=== PATIENT | female | born 1995 | race Caucasian/White ===

== ENCOUNTER 2017-07-31 00:54 | Outpatient (CLI) | payer OTHER ==
[~2017-07-31] VITALS: Ht 160 cm; Wt 73.0 kg
[~2017-07-31 00:54] MED LIST: FRRS300 PO; MTR600X PO; PREN1TAB29 PO
[2017-07-31 01:48] VITALS: Ht 160 cm; Wt 73.0 kg
== END 2017-07-31 03:09 | disposition home or self-care (01) ==
LOC: C.LD 00:54 → C.OPB 00:54
PROVIDERS: ATTEND Obstetrics & Gynecology
DX: O62.9 Abnormality of forces of labor, unspecified (principal); Z3A.38 38 weeks gestation of pregnancy

== ENCOUNTER 2017-08-14 07:23 | Inpatient (IN) | payer OTHER ==
[~2017-08-14] VITALS: Ht 160 cm; Wt 85.5 kg
[~2017-08-14 07:23] MED LIST changes: -FRRS300 PO; -MTR600X PO
[2017-08-14 07:47] VITALS: Ht 160 cm; Wt 85.5 kg
[2017-08-14] MEDS ORDERED: LACTATED RINGER'S 1000ML 1,000 ML IV SCH (07:52)
[2017-08-14] MEDS ORDERED: LACTATED RINGER'S 1000ML 1,000 ML IV PRN (07:52)
[2017-08-14] MEDS ORDERED: LACTATED RINGER'S 1000ML 500 ML IV PRN (07:52)
[2017-08-14] MEDS ORDERED: CALCIUM CARBONATE 500 MG CHEWABLE PO PRN (08:00)
[2017-08-14] MEDS ORDERED: OXYTOCIN 30 UNITS/500ML NSS IV PRN ×2 (08:00→16:00)
[2017-08-14 08:16] LABS: HEMATOCRIT 30.7 % (37-47); MEAN CELL VOLUME 86.7 fL (80-100); MEAN CORPUSCULAR HEMOGLOBIN 28.2 pg (25-34); MEAN CORPUSCULAR HGB CONC 32.6 g/dl (32-36); MEAN PLATELET VOLUME 8.9 fL (7.4-10.4); PLATELET COUNT 243 K/uL (130-400); RED CELL DISTRIBUTION WIDTH CV 14.6 % (11.5-14.5); RED CELL DISTRIBUTION WIDTH SD 46.2 fL (36.4-46.3); WHITE BLOOD COUNT 9.36 K/uL (4.8-10.8)
[2017-08-14] MEDS: BUTORPHANOL TARTRATE 1 MG/ML VIAL IV PRN ×2 (12:44→14:44)
[2017-08-14] MEDS ORDERED: EpHEDrine SULFATE INJ 50 MG/ML AMP ONE (15:27)
[2017-08-14] MEDS ORDERED: BUPIVACAINE 0.25% 30 ML VIAL ONE (15:27)
[2017-08-14] MEDS ORDERED: FENTANYL CITRATE INJ 50 MCG/1 ML 2 ML VIAL ONE (15:28)
[2017-08-14] MEDS ORDERED: FENTANYL 2MCG/ML ROPIV 1.25MG/ML 100ML BAG ONE (15:28)
[2017-08-14] MEDS ORDERED: SUPERCREAM 0.870 % 15GM JAR EXT PRN (16:00)
[2017-08-14] MEDS ORDERED: DIPHTHERIA/TETANUS/PERTUSSIS 0.5 ML SYR/VIAL IM. ONE (16:00)
[2017-08-14] MEDS ORDERED: OXYCODONE/ACETAMINOPHEN 5-325 TAB PO PRN (16:00)
[2017-08-14] MEDS ORDERED: ACETAMINOPHEN 325 MG TAB PO PRN (16:00)
[2017-08-14] MEDS ORDERED: LANOLIN OINT EXT PRN (16:00)
[2017-08-14] MEDS ORDERED: HYDROCORTISONE ACETATE 25 MG SUPP PR PRN (16:00)
[2017-08-14] MEDS ORDERED: BENZOCAINE 20% AER SPR 82.5 GM CAN EXT PRN (16:00)
[2017-08-14] MEDS: IBUPROFEN 600 MG TAB PO PRN (16:07)
[2017-08-14 18:10] VITALS: BP 122/78; PULSE 109; TEMP 36.7
--- NOTE | 2017-08-14 19:28 | DELIVERY SUMMARY ---
DATE OF OPERATION: 08/14/2017 DATE OF DELIVERY: 08/14/2017 TIME OF DELIVERY: 1543. DELIVERY OF PLACENTA: 1544. DELIVERY NOTE: The patient is a 22-year-old 2 Para 1 at 40 weeks and 6 days gestation who was admitted to Labor and Delivery on the morning of 08/14/2017 for a scheduled induction of labor secondary to being post-dates. On admission she was found to be 3 cm, 60% effaced and -3 station. Oxytocin per protocol was began for labor induction. She had spontaneous rupture of membranes at 1225 a.m. with clear amniotic fluid noted. She received Stadol for pain control. She chose not to have an epidural. She reached complete dilation at 1538 with urge to push. The patient pushed to delivery at 1543. She delivered a viable female in the right occiput anterior position to an intact perineum. The anterior shoulder was delivered with Marta and suprapubic pressure. Once the anterior shoulder the baby was delivered and placed on the patient's abdomen. Cord was clamped x2 and cut. Apgars were 9 at 1 minute and 9 at 5 minutes; please see nursing notes for further baby assessment. Cord blood was obtained, intact placenta with 3-vessel cord was delivered at 1544. Oxytocin infusion was then began. The lower uterine segment and vagina is cleared of any blood clots and debris. Exploration of the perineum noted a first degree vaginal laceration which was repaired with 2-0 Vicryl suture in a continuous running fashion. Excellent hemostasis was noted and no other lacerations were seen. Estimated blood loss was 300 cc. All sponge, instrument and needle counts were found to be correct x2. Both patient and baby tolerated the delivery well and were in recovery with stable vital signs. I attest to the content of the Intraoperative Record and any orders documented therein. Any exceptions are noted below. MTDD
[2017-08-14 19:30] VITALS: BP 97/68; PULSE 89; TEMP 37.1
[2017-08-14] MEDS: DOCUSATE SODIUM 100 MG CAP PO SCH (19:55)
[2017-08-14 23:30] VITALS: BP 111/68; PULSE 89; TEMP 36.8
[2017-08-15] MEDS: IBUPROFEN 600 MG TAB PO PRN ×4 (00:25→15:30)
[2017-08-15 05:00] VITALS: BP 107/67; PULSE 92; TEMP 36.8
[2017-08-15 06:18] LABS: HEMATOCRIT 24.6 % (37-47)
[2017-08-15 08:30] VITALS: BP 112/75; PULSE 78; TEMP 36.7
[2017-08-15] MEDS: DOCUSATE SODIUM 100 MG CAP PO SCH ×2 (08:46→19:47)
[2017-08-15] MEDS: PRENATAL VITAMIN TAB PO SCH (08:46)
[2017-08-15] MEDS: FERROUS SULFATE 325 MG TAB PO SCH (08:46)
--- NOTE | 2017-08-15 09:15 | OB/GYN Progress Note ---
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 Subjective conversation w/ patient, physical exam Ambulation: ambulating normally Passing Gas: Yes Diet Tolerance: Regular Diet Lochia: Moderate Feeding Type: Breast Feeding Objective Vital Signs Date Time Temp Pulse Resp B/P (MAP) Pulse Ox O2 Delivery O2 Flow Rate FiO2 08/15/17 05:00 36.8 92 20 107/67 (80) Room Air 08/14/17 23:30 36.8 89 20 111/68 (82) Room Air 08/14/17 23:30 Room Air 08/14/17 19:30 37.1 89 20 97/68 (78) Room Air 08/14/17 18:10 Room Air 08/14/17 18:10 36.7 109 20 122/78 (93) Room Air Physical Exam General Appearance: WELL-APPEARING, NO APPARENT DISTRESS Abdomen: non tender, soft Fundus: Firm Extremities: non-tender, normal inspection, no pedal edema Laboratory Results Last 24 Hours Test 08/15/17 05:58 Hemoglobin 8.0 g/dL Hematocrit 24.6 % Assessment and Plan Post- Day Number: 1 Continue Routine Care: tent d/c in AM
[2017-08-15 11:55] VITALS: BP 115/80; PULSE 97; TEMP 36.7
[2017-08-15 15:15] VITALS: BP 117/71; PULSE 90; TEMP 37.1
[2017-08-15] MEDS ORDERED: BISACODYL 5 MG TABEC PO SCH (20:00)
[2017-08-16 00:50] VITALS: BP 115/69; PULSE 74; TEMP 36.6
[2017-08-16 06:39] LABS: HEMATOCRIT 26.2 % (37-47); HEMOGLOBIN 8.2 g/dL (12.0-16.0); MEAN CELL VOLUME 87.6 fL (80-100); MEAN CORPUSCULAR HEMOGLOBIN 27.4 pg (25-34); MEAN CORPUSCULAR HGB CONC 31.3 g/dl (32-36); MEAN PLATELET VOLUME 8.3 fL (7.4-10.4); PLATELET COUNT 215 K/uL (130-400); RED CELL DISTRIBUTION WIDTH CV 14.9 % (11.5-14.5); RED CELL DISTRIBUTION WIDTH SD 47.3 fL (36.4-46.3); WHITE BLOOD COUNT 9.84 K/uL (4.8-10.8)
[2017-08-16] MEDS ORDERED: BISACODYL 10 MG SUPP PR PRN (07:00)
[2017-08-16 08:00] VITALS: BP 106/69; PULSE 96; TEMP 36.7; O2SAT 100
--- NOTE | 2017-08-16 08:24 | OB/GYN Progress Note ---
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 Patient is seen and examined. She feels well, no complaints. Ambulating without dizziness Voiding without difficulty Tolerating regular diet with out N&V Bleeding is minimal No fever/ chills/ CP/ SOB/ N&V/ Leg pain Breast feeding without problems Date Time Temp Pulse Resp B/P (MAP) Pulse Ox O2 Delivery O2 Flow Rate FiO2 08/16/17 00:50 36.6 74 18 115/69 (84) Room Air 08/16/17 00:50 Room Air 08/15/17 15:15 37.1 90 20 117/71 (86) 08/15/17 11:55 36.7 97 22 115/80 (92) 08/15/17 08:30 36.7 78 20 112/75 (87) Last 24 Hours Test 08/16/17 06:15 White Blood Count 9.84 K/uL Red Blood Count 2.99 M/uL Hemoglobin 8.2 g/dL Hematocrit 26.2 % Mean Corpuscular Volume 87.6 fL Mean Corpuscular Hemoglobin 27.4 pg Mean Corpuscular Hemoglobin Concent 31.3 g/dl RDW Standard Deviation 47.3 fL RDW Coefficient of Variation 14.9 % Platelet Count 215 K/uL Mean Platelet Volume 8.3 fL PE: General: Alert, orientedx3, NAD Abd: soft, NT, fundus firm, below Umbilicus Perineum intact, Lochia rubra minimal Ext; NT, no edema AP: 22 yo s/p , ppd# 2 VSS Afebrile doing well Continue routine care All questions were answered D/C home , f/u in office
[2017-08-16] MEDS: DOCUSATE SODIUM 100 MG CAP PO SCH (08:25)
[2017-08-16] MEDS: FERROUS SULFATE 325 MG TAB PO SCH (08:25)
[2017-08-16] MEDS: PRENATAL VITAMIN TAB PO SCH (08:25)
[2017-08-16] MEDS ORDERED: FRRS300 PO (08:26)
[2017-08-16] MEDS: IBUPROFEN 600 MG TAB PO PRN (08:26)
[2017-08-16] MEDS ORDERED: MTR600X PO (08:26)
--- NOTE | 2017-08-16 08:27 | Discharge Instructions ---
Discharge Instructions Date of Service August 16, 2017. Admission Reason for Admission: Induction Discharge Discharge Diagnosis / Problem: Discharge Goals Goal(s): Routine recovery after delivery Medications Continue Dispensed Medications: lansinoh, other Activity Recommendations Activity Limitations: as noted below ACTIVITY RECOMMENDATIONS: * Gradual return to full activity over the next 2-3 weeks. * No lifting - nothing heavier than baby over the next 2-3 weeks. * Do not engage in vigorous exercise, sexual activity or sports until cleared by your physician. * Do not drive or operate any motorized equipment until cleared by your physician. * You may shower/bathe daily. BREAST CARE: If you are not breast feeding: * Wear a supportive bra 24 hours a day for one to two weeks. * Avoid stimulating your breasts and nipples as much as possible during the first few weeks after delivery. * When taking a shower, have the warm water hit your back, not breasts. * When your breasts feel full, apply ice packs. Usually three to four times a day helps ease the discomfort. * Take a mild pain medication (Tylenol/Motrin) when you are uncomfortable. If breast feeding: * Use breast milk to lubricate nipples. Lansinoh cream may be used for sore nipples. You do not need to remove cream prior to breast feeding. If using a different brand of cream, check the label for directions regarding removal of cream prior to nursing. * Wear a supportive bra. * If having problems with breasts or breast feeding, call a technical sales consultant or your health care provider. EPISIOTOMY CARE: After delivery, if you have an episiotomy (stitches), the following steps will ease discomfort and aid healing. * For the first 24 hours after delivery, place ice packs next to your episiotomy to help reduce swelling. * After the first 24 hour-period, sitz baths, either portable or in the tub, are suggested. A shower with a shower arm sprayed over the episiotomy may be comforting. * Marimar care should be done after each voiding and bowel movement. Squirt warm water from a plastic bottle over the perineum (region of the body between the anus and urinary opening) and pat dry. * Use Dermoplast to ease discomfort. Shake container. [place] directly over the episiotomy. * Place a Tucks on a clean sanitary pad next to your episiotomy. OVER THE COUNTER MEDICATION: * For discomfort or pain, you may use Acetaminophen (Tylenol), Ibuprofen (Advil ), or Naproxen (Aleve) following the package directions. * For constipation you may use Colace following the package directions. SPECIAL CARE INSTRUCTIONS: When you are discharged from the hospital, it is important for you to follow the instructions listed below: * During the first week at home, you should be able to care for yourself and your baby. In addition, the usual light household activities are encouraged. * Limit your activities to the way you feel. Do not try to clean the house or move furniture. Be sensible. * If you actively engage in sports and have done so up until the time of your delivery, you may resume these activities as soon as you feel able. This may take up to one month or even longer. Use good judgment. * Continue to take your vitamins for at least six weeks after the of your baby. * Your diet need not be limited unless you were on a special diet before your delivery. Breast-feeding mothers need around 2500 calories per day and at least 64-80 ounces of fluid per day (8 to 10 glasses). * You should eat foods from the four major food groups. Crash diets or fad diets are to be avoided. Eating lean meats, fresh fruits and vegetables, low-fat dairy products, high fiber foods and a regular exercise program, will help you get back to your pre- weight without putting your health at risk. * Constipation is sometimes a problem after delivery. Take a mild laxative as needed. If breast feeding, Milk of Magnesia is acceptable to use. You may use a suppository or Fleets enema if no episiotomy. * A daily shower or tub bath is suggested. Be sure to thoroughly and gently dry the perineum. * A bloody vaginal discharge will usually continue until around four weeks post . A small amount of bleeding may continue for as long as six weeks. Vaginal discharge changes from the bright red bleeding after delivery to pink then brownish and finally yellowish-pink before becoming white and disappearing. * Bleeding may increase with activity. Your first period may come in 4-8 weeks. If you are breast feeding, your period may be delayed even longer. * Lag[place] (sex) can begin whenever both you and your partner feel comfortable and do not have any form of genital infection. It is recommended that you wait until after your return appointment and discuss with your physician. If you have questions, please talk to your health care practitioner. A condom should be used to prevent infection and . * Foreplay, gentle intercourse and lubrication is very important the first several times to prevent pain. A water-based lubricant such as K-Y jelly or Astroglide may be used. * Tampons may be used six weeks after delivery. * Douching should be avoided for 6 weeks after delivery. * If you have RH negative blood and your baby is RH positive, you will receive RHOGAM by injection prior to discharge. The nurse will give you a card to keep with you that has the date and place that you received RHOGAM after delivery. * During your care, you had a Rubella screen done to check for the presence of rubella antibodies in your blood. If your test was negative, you will receive a Rubella vaccine prior to discharge. This vaccine may cause a fever, soreness at the injection site and flu-like symptoms. If these symptoms persist, notify your health care practitioner. is not advised for three months after a Rubella vaccine. There is a higher chance of having a baby with defects if conceived within three months of getting the vaccine. * If you were discharged 24 hours from delivery or before 48 hours: Visiting nurses will come to your home 48 hours after discharge to assess you and your baby. The visiting nurse will meet with you while you are in the hospital to arrange a time and get directions to your home. * Verbalizes understanding of car seat law as reviewed with patient nursing. * Car Seat hand-out given and reviewed with patient by nursing. * Shaken baby information reviewed with patient by nursing. Call you doctor if: * Heavy bleeding (saturating several pads an hour) or passing clots the size of your fist. * A fever >101 degrees F (38.3 degrees C) on two occasions four hours apart and/or chills. * Unusual pain in the pelvic or vaginal areas. * "Baby Blues" lasting longer than two weeks. If you have any questions or concerns, call your health care practitioner at . FOLLOW-UP VISIT: * Please call the office at to schedule a 6 week examination. It is important you keep this appointment. * It is important for you to make arrangements for either yearly or twice yearly check-ups thereafter. . Current Hospital Diet Patient's current hospital diet: Regular OB Diet Discharge Diet Recommended Diet: Regular Diet Pending Studies Studies pending at discharge: no Medical Emergencies . Who to Call and When: Medical Emergencies: If at any time you feel your situation is an emergency, please call 911 immediately. . Non-Emergent Contact Non-Emergency issues call your: Specialist Call Non-Emergent contact if: temperature is above 100.5, your pain is not controlled, your pain is worsening, your pain is unusual for you, you have any medication questions . . "Provider Documentation" section prepared by Joseph Mullen. .
[2017-08-16 08:45] VITALS: BP_DIAS 69; PULSE 96; TEMP 36.7
[2017-08-16 13:51] VITALS: BP_DIAS 69; PULSE 96; TEMP 36.7
== END 2017-08-16 15:09 | disposition home or self-care (01) | DRG 775 ==
LOC: C.LD 07:23 → C.OBG 18:15
PROVIDERS: ADMIT Obstetrics & Gynecology; ATTEND Obstetrics & Gynecology
PROC: 0UQGXZZ Repair Vagina, External Approach (ICD-10-PCS; principal; 2017-08-14)
PROC: 10E0XZZ Delivery of Products of Conception, External Approach (ICD-10-PCS; principal; 2017-08-14)
PROC: 3E033VJ Introduction of Other Hormone into Peripheral Vein, Percutaneous Approach (ICD-10-PCS; principal; 2017-08-14)
DX: O48.0 Post-term pregnancy (principal); O71.4 Obstetric high vaginal laceration alone; Z37.0 Single live birth; O66.0 Obstructed labor due to shoulder dystocia; Z3A.40 40 weeks gestation of pregnancy

== ENCOUNTER 2021-05-07 01:45 | Observation (INO) ==
[2021-05-07] MEDS ORDERED: MoRPHine SULFATE 4 MG/ML 1 ML CARP\\VIAL IV STA (02:01)
[2021-05-07] MEDS ORDERED: ONDANSETRON INJ 2 MG/ML 2 ML VIAL IV STA (02:01)
[2021-05-07] MEDS ORDERED: SODIUM CHLORIDE 0.9% 1000ML 1,000 ML IV STA (02:01)
[2021-05-07 02:22] LABS: Basophils # (auto) 0.02 K/uL (0-0.2); Basophils % (auto) 0.2 %; Eosinophils # (auto) 0.18 K/uL (0-0.5); Eosinophils % (auto) 2.1 %; Hematocrit (blood only) 38.5 % (37-47); Hemoglobin 13.4 g/dL (12.0-16.0); Immature Granulocytes # (auto) 0.01 K/uL (0.00-0.02); Immature Granulocytes % (auto) 0.1 %; Lymphocytes # (auto) 3.09 K/uL (1.2-3.4); Lymphocytes % (auto) 35.5 %; Mean Corpuscular Hemoglobin 31.7 pg (25-34); Mean Corpuscular Hgb Conc 34.8 g/dL (32-36); Mean Platelet Volume 8.8 fL (7.4-10.4); Monocytes # (auto) 0.68 K/uL (0.11-0.59); Monocytes % (auto) 7.8 %; Neutrophils # (auto) 4.73 K/uL (1.4-6.5); Neutrophils % (auto) 54.3 %; Platelet Count 338 K/uL (130-400); RDW Coefficient of Variation 12.7 % (11.5-14.5); RDW Standard Deviation 42.2 fL (36.4-46.3); Red Blood Count 4.23 M/uL (4.2-5.4); White Blood Count 8.71 K/uL (4.8-10.8)
[2021-05-07 02:44] LABS: Albumin Globulin Ratio 1.4 (0.9-2); Albumin Level 4.1 gm/dl (3.4-5.0); BUN Creatinine Ratio 22.5 (10-20); Bilirubin,Total 0.3 mg/dl (0.2-1.0); Calcium 9.3 mg/dl (8.5-10.1); Creatinine Clr Calc Pharmacy 128.2 ml/min; Est GFR (African American) 137.2 ml/min; Est GFR (Non-African American) 118.4 ml/min; Globulin 2.9 gm/dl (2.5-4.0); Potassium 3.6 mmol/L (3.5-5.1)
[2021-05-07 02:53] LABS: Pregnancy Test, Serum Negative (Negative)
--- NOTE | 2021-05-07 03:15 | Emergency Department Note ---
History of Present Illness General Chief complaint: Rib Injury/Pain Stated complaint: SOB,RIB PAIN,BACK PAIN Time Seen by Provider: 05/07/21 01:53 History of Present Illness Maximum Pain Intensity: 8 This 26-year-old presents to the ER complaining of right upper quadrant pain Location: Right upper quadrant Quality: Painful Severity: Moderate Duration: Today Timing: Today Context: Patient was concerned and came in Modifying factors: better with rest; worse with palpation Patient complains of pain all day. Worse with eating pizza. No prior symptoms in the past. She stills her gallbladder. Patient denies chest pain, dyspnea, fevers, flulike illness. Home Medications Medication Instructions Recorded Confirmed Type VIT W/ FERROUS FUMARA 1 tab PO DAILY #0 07/02/15 History () Ferrous Sulfate 325 mg PO DAILY #60 tab 08/16/17 Rx Ibuprofen 600 mg PO Q6 PRN #30 tab 08/16/17 Rx Allergies Allergy/AdvReac Type Severity Reaction Status Date / Time No Known Allergies Allergy Unverified 08/14/17 07:47 Past Med/Surg History Medical History No acute medical problems Surgical History No pertinent past surgical history Social History Smoking Status: Current every day smoker Tobacco Type: E-cigarettes / Vaping Preferred Language: Guamanian Feels Safe at Home: Yes Review of Systems A total of 10 systems reviewed and were otherwise negative Physical Exam Vital Signs Vital Signs - 24 hr 05/07/21 01:45 05/07/21 01:47 05/07/21 02:01 Temperature 36.8 C Temperature Source Temporal Artery Scan Pulse Rate 90 Pulse Rate [Right Finger] 73 Respiratory Rate 16 18 Respiratory Effort / Characteristics Non-Labored Spontaneous Respiratory Depth Normal Blood Pressure 143/82 H Blood Pressure [Right Arm] Blood Pressure Mean 102 Blood Pressure Mean [Right Arm] Pulse Oximetry 98 99 98 Oxygen Delivery Method Room Air Room Air Room Air Sepsis New/Unexplained Change in Mental Status N/A Sepsis Action Taken by Nursing No Action Required 05/07/21 03:45 Temperature Temperature Source Pulse Rate Pulse Rate [Right Finger] 78 Respiratory Rate 16 Respiratory Effort / Characteristics Respiratory Depth Blood Pressure Blood Pressure [Right Arm] 105/78 Blood Pressure Mean Blood Pressure Mean [Right Arm] 87 Pulse Oximetry 99 Oxygen Delivery Method Room Air Sepsis New/Unexplained Change in Mental Status Sepsis Action Taken by Nursing VITALS: Vitals are noted on the nurse's note and reviewed by myself. Vital signs stable. GENERAL: Pleasant female, in no acute distress, nondiaphoretic, well-developed well-nourished. SKIN: The skin was without rashes, erythema, edema, or bruising. There is no tenting of the skin. Capillary reflex less than 2 seconds. HEAD: Normocephalic atraumatic. EARS: External auditory canals clear, EYES: Pupils equal round and reactive to light and accommodation. Conjunctivae without injection, sclerae without icterus. Extraocular movements intact. NOSE: Patent, turbinates without inflammation or discharge MOUTH: Mucous membranes moist. Pharynx without erythema or exudate. Uvula midline. Airway patent. Tongue does not deviate. NECK: Supple without nuchal rigidity. No lymphadenopathy. No thyromegaly. Cervical spine is nontender. No JVD. HEART: Regular rate and rhythm LUNGS: Clear to auscultation bilaterally without wheezes, rales or rhonchi. No retractions or accessory muscle use. ABDOMEN: Positive bowel sounds x 4. Normal tympanic percussion. Soft, tender to palpation right upper quadrant, without masses or organomegaly. No guarding or rebound tenderness. No CVA tenderness MUSCULOSKELETAL: No muscle atrophy, erythema, or edema noted. NEURO: Patient was alert and oriented to person place and time. Normal sensation to light and sharp touch. No focal neurological deficits. Course Administered Medications Cefoxitin Sodium (Mefoxin) 2,000 mg in 60 mls @ 100 mls/hr IV NOW STA Stop: 05/07/21 05:42 Last Admin: 05/07/21 05:31 Dose: 100 mls/hr Documented by: [id number] Discontinued Medications Sodium Chloride (Nss 1000ml) 1,000 mls @ 999 mls/hr IV .Q1H1M STA Stop: 05/07/21 03:01 Last Infusion: 05/07/21 03:44 Dose: 0 mls/hr Documented by: [id number] Admin: 05/07/21 02:33 Dose: 999 mls/hr Documented by: [id number] Morphine Sulfate (Morphine Sulfate 4 Mg/Ml 1 Ml Carp\Vial) 4 mg IV NOW STA Stop: 05/07/21 02:02 Last Admin: 05/07/21 02:32 Dose: 4 mg Documented by: [id number] Ondansetron HCl (Ondansetron Inj 2 Mg/Ml 2 Ml Vial) 4 mg IV NOW STA Stop: 05/07/21 02:02 Last Admin: 05/07/21 02:32 Dose: 4 mg Documented by: [id number] Medical Decision Making Medical Records Attestation: I reviewed the patient's medical records. Home Medications Current Medication List: was personally reviewed by me Laboratory Data Attestation: I reviewed the patient's lab results. Result diagrams: 05/07/21 02:13 05/07/21 02:13 Lab Results 05/07/21 05/07/21 05/07/21 Range/Units 02:13 02:13 02:13 WBC 8.71 (4.8-10.8) K/uL RBC 4.23 (4.2-5.4) M/uL Hgb 13.4 (12.0-16.0) g/dL Hct 38.5 (37-47) % MCV 91.0 (80-100) fL MCH 31.7 (25-34) pg MCHC 34.8 (32-36) g/dL RDW Std Deviation 42.2 (36.4-46.3) fL RDW Coeff of Sue 12.7 (11.5-14.5) % Plt Count 338 (130-400) K/uL MPV 8.8 (7.4-10.4) fL Immature Gran % (Auto) 0.1 % Neut % (Auto) 54.3 % Lymph % (Auto) 35.5 % Cochran % (Auto) 7.8 % Eos % (Auto) 2.1 % Baso % (Auto) 0.2 % Neut # (Auto) 4.73 (1.4-6.5) K/uL Lymph # (Auto) 3.09 (1.2-3.4) K/uL [place]chran # (Auto) 0.68 H (0.11-0.59) K/uL Eos # (Auto) 0.18 (0-0.5) K/uL Baso # (Auto) 0.02 (0-0.2) K/uL Immature Gran # (Auto) 0.01 (0.00-0.02) K/uL Sodium 134 L (136-145) mmol/L Potassium 3.6 (3.5-5.1) mmol/L Chloride 108 H (98-107) mmol/L Carbon Dioxide 24 (21-32) mmol/L Anion Gap 2 L (3-11) BUN 16 (6-23) mg/dl Creatinine 0.71 (0.6-1.2) mg/dl Est Cr Clr Drug Dosing 128.2 ml/min Est GFR ( Amer) 137.2 ml/min Est GFR (Non-Af Amer) 118.4 ml/min BUN/Creatinine Ratio 22.5 H (10-20) Glucose 94 (70-99(Fasting)) mg/dl Calcium 9.3 (8.5-10.1) mg/dl Total Bilirubin 0.3 (0.2-1.0) mg/dl AST 13 (13-39) U/L ALT 15 (7-52) U/L Alkaline Phosphatase 73 (34-104) U/L Total Protein 7.0 (6.0-8.3) gm/dl Albumin 4.1 (3.4-5.0) gm/dl Globulin 2.9 (2.5-4.0) gm/dl Albumin/Globulin Ratio 1.4 (0.9-2) Lipase 22 (11-82) U/L HCG, Qual Negative (Negative) Urine Color Urine Appearance (Clear) Urine pH (4.5-7.5) Ur Specific [place] (1.000-1.030) Urine Protein (Negative) Urine Glucose (UA) (Negative) Urine Ketones (Negative) Urine Blood (Negative) Urine Nitrite (Negative) Urine Bilirubin (Negative) Urine Urobilinogen (Negative) Ur Leukocyte Esterase (Negative) 05/07/21 Range/Units 03:10 WBC (4.8-10.8) K/uL RBC (4.2-5.4) M/uL Hgb (12.0-16.0) g/dL Hct (37-47) % MCV (80-100) fL MCH (25-34) pg MCHC (32-36) g/dL RDW Std Deviation (36.4-46.3) fL RDW Coeff of Sue (11.5-14.5) % Plt Count (130-400) K/uL MPV (7.4-10.4) fL Immature Gran % (Auto) % Neut % (Auto) % Lymph % (Auto) % [place]ch[place] % (Auto) % Eos % (Auto) % Baso % (Auto) % Neut # (Auto) (1.4-6.5) K/uL Lymph # (Auto) (1.2-3.4) K/uL [place]ran # (Auto) (0.11-0.59) K/uL Eos # (Auto) (0-0.5) K/uL Baso # (Auto) (0-0.2) K/uL Immature Gran # (Auto) (0.00-0.02) K/uL Sodium (136-145) mmol/L Potassium (3.5-5.1) mmol/L Chloride (98-107) mmol/L Carbon Dioxide (21-32) mmol/L Anion Gap (3-11) BUN (6-23) mg/dl Creatinine (0.6-1.2) mg/dl Est Cr Clr Drug Dosing ml/min Est GFR ( Amer) ml/min Est GFR (Non-Af Amer) ml/min BUN/Creatinine Ratio (10-20) Glucose (70-99(Fasting)) mg/dl Calcium (8.5-10.1) mg/dl Total Bilirubin (0.2-1.0) mg/dl AST (13-39) U/L ALT (7-52) U/L Alkaline Phosphatase (34-104) U/L Total Protein (6.0-8.3) gm/dl Albumin (3.4-5.0) gm/dl Globulin (2.5-4.0) gm/dl Albumin/Globulin Ratio (0.9-2) Lipase (11-82) U/L HCG, Qual (Negative) Urine Color Yellow Urine Appearance Clear (Clear) Urine pH 5.0 (4.5-7.5) Ur Specific [place] 1.023 (1.000-1.030) Urine Protein Negative (Negative) Urine Glucose (UA) Negative (Negative) Urine Ketones Negative (Negative) Urine Blood Negative (Negative) Urine Nitrite Negative (Negative) Urine Bilirubin Negative (Negative) Urine Urobilinogen Negative (Negative) Ur Leukocyte Esterase Negative (Negative) Imaging Data Attestation: I personally reviewed and interpreted this imaging study as follows: MDM Narrative Prior records/ancillary studies reviewed. Triage Nursing notes reviewed. Additional history obtained from nursing. The patient's history was concerning for abdominal pain. Differential diagnosis: Etiologies such as appendicitis, diverticulitis, PUD, biliary pathology, UTI, pancreatitis, obstruction, mesenteric ischemia, aortic pathology, infections, inflammatory bowel disease, renal colic, as well as others were entertained. Physical examination findings: As above. ER treatment provided: An order was placed for continuous cardiac monitoring. The monitor shows a rate of 60-100 with a sinus rhythm. IV fluids, Zofran, morphine, Mefoxin On reassessment the patient felt better. Diagnostics interpreted by me: The labs revealed no worrisome leukocytosis. Negative troponin. Normal LFTs Imaging studies: Preliminary Findings Only See Final Report For Complete Findings US GALLBLADDER: There is a nonmobile stone in the gallbladder neck measuring 9 mm. However, no associated sonographic findings to suggest acute cholecystitis. No biliary dilatation with the common bile duct measuring 4 mm. The liver is borderline prominent and slightly hyperechoic measuring 17.2 cm. The pancreas is obscured. The IVC and portal vein and right kidney are unrem arkable. No free fluid. Radiologist: Nahid Zaidi MD Consultation: A consultation was placed with the Dr. Jordan, surgery. The case was discussed and diagnostics were reviewed. The patient was evaluated in the ER for further treatment. Exam and history seem consistent with biliary colic. Patient still quite tender. Surgery was consulted. They will evaluate for possible admission. Patient was started on antibiotics. She is placed NPO. By the evaluation outlined above emergent etiologies such as appendicitis, diverticulitis, PUD, UTI, pancreatitis, mesenteric ischemia, aortic pathology, inflammatory bowel disease, renal colic, as well as others were deemed relatively unlikely. The pt informed about the findings as listed above. All questions were answered and pleased with the treatment. The chart was completed utilizing [employer] voice recognition software. Grammatical errors, random word insertions, pronoun errors, and incomplete sentences are an occassional consequence of this system due to software limitations, ambient noise, and hardware issues. Any formal questions or concerns about the content, text, or information contained within the body of this dictation should be directly addressed to the physician physical therapy assistant instructor for clarification. Impression & Plan Biliary colic, Abdominal pain in female, Gallstones Discharge Plan Visit Data Chief Complaint: Rib Injury/Pain Stated Complaint: SOB,RIB PAIN,BACK PAIN ED Provider: Barbi Betts ED Midlevel Provider: Jeannine Bridges Discharge Problem: Biliary colic, Abdominal pain in female, Gallstones Patient Disposition: Being Evaluated by Surgeon Condition: Good Forms Stand Alone Forms: [facility] [employer] Prescriptions Prescriptions: No Action VIT W/ FERROUS FUMARA () 1 TAB tablet 1 tab PO DAILY Qty: 0 RF: 0 Ferrous Sulfate 325 MG tablet 325 mg PO DAILY Qty: 60 RF: 0 Ibuprofen 600 MG tablet 600 mg PO Q6 PRN (Reason: PAIN, BOYLE, CRAMPING OR FEVER) Qty: 30 RF: 0 Referrals Referrals: PCP,NO [Primary Care Provider] -
[2021-05-07 03:25] LABS: Appearance Urine Clear (Clear); Bilirubin Urine Negative (Negative); Blood Urine Negative (Negative); Color Urine Yellow; Glucose Urine UA Negative (Negative); Ketones Urine Negative (Negative); Leukocyte Esterase Urine Negative (Negative); Nitrite Urine Negative (Negative); Protein Urine Negative (Negative); Specific Gravity Urine 1.023 (1.000-1.030); Urobilinogen Urine Negative (Negative)
[2021-05-07] MEDS ORDERED: cefOXitin 2,000 MG/60 ML BAG IV STA (05:07)
[2021-05-07] MEDS ORDERED: oxyCODONE/ACETAMINOPHEN 5mg/325mg TAB PO PRN (05:19)
[2021-05-07] MEDS ORDERED: ACETAMINOPHEN 325 MG TAB PO PRN (05:19)
[2021-05-07] MEDS ORDERED: MoRPHine SULFATE 2 MG/ML CARP IV PRN (05:19)
[2021-05-07] MEDS ORDERED: MoRPHine SULFATE 4 MG/ML 1 ML CARP\\VIAL IV PRN (05:19)
[2021-05-07] MEDS: SODIUM CHLORIDE 0.9% 500 ML IV SCH ×4 (06:00→22:56)
--- NOTE | 2021-05-07 06:56 | History & Physical Report ---
Date of Service May 07, 2021 Assessment & Plan (1) Gallstones: (2) Acute cholecystitis: Plan: Iv abx IVF NPO to OR for lap kelly this AM Present on Admission?: Yes History of Present Illness Chief Complaint: abdominal pain Primary Care Provider: NO PCP This 26-year-old presents to the ER complaining of right upper quadrant pain which began today. She ate a meal last night and pain began. This was the first episode and the pain radiated to her right back and mainly upper quadrant. She has nausea associated but no vomiting. Patient denies chest pain, dyspnea, fevers, flulike illness, or urinary symptoms. Allergies Allergy/AdvReac Type Severity Reaction Status Date / Time No Known Allergies Allergy Unverified 08/14/17 07:47 Home Medications Medication Instructions Recorded Confirmed Type VIT W/ FERROUS FUMARA 1 tab PO DAILY #0 07/02/15 History () Ferrous Sulfate 325 mg PO DAILY #60 tab 08/16/17 Rx Ibuprofen 600 mg PO Q6 PRN #30 tab 08/16/17 Rx Past Med/Surg History Medical History No acute medical problems Surgical History No pertinent past surgical history Social History Smoking Status: Current every day smoker Tobacco Type: E-cigarettes / Vaping Preferred Language: Turkmen Feels Safe at Home: Yes Review of Systems no fever and no chills no problem reported no problem reported no cough and no dyspnea no chest pain + abdominal pain and + nausea; no vomiting, no dysphagia and no change in bowel habits no dysuria + back pain; no neck pain and no joint pain no yellowing of the skin no localized weakness and no generalized weakness no behavioral changes and no depression no fatigue no easy bleeding and no easy bruising Physical Exam Constitutional: WD/WN, vitals as above Eyes: PERRL, conjunctivae normal, anicteric sclerae ENMT: external ear and nose normal, oropharynx normal Neck: trachea midline Respiratory: normal respiratory effort, lungs clear to auscultation Cardiovascular: RRR, no murmur, no edema Gastrointestinal (Abdomen): Inspection/Auscultation: normal bowel sounds; abdomen not distended Percussion/Palpation: + abdomen tender and abdomen soft; no guarding and abdomen not rigid Musculoskeletal: Head/Neck/Chest: normocephalic and head atraumatic Skin: no rashes, warm and dry Psychiatric: Orientation: alert and oriented x 3 ASA Classification ASA ASA2 Results & Data ([facility]) Vital Signs (Past 12 Hours) Vital Signs Temp Pulse Pulse Resp BP BP Pulse Ox 05/07/21 05:19 98 05/07/21 05:00 78 16 105/78 98 05/07/21 03:45 78 16 105/78 99 05/07/21 02:01 98 05/07/21 01:47 36.8 C 90 18 143/82 H 99 05/07/21 01:45 73 16 98 Diagnostic Findings US with stone in neck of the gallbladder Code Status & VTE Plan VTE Prophylaxis Plan VTE Prophylaxis will be ordered: Yes
[2021-05-07] MEDS ORDERED: EPINEPHrine INJ 1 MG/ML AMP ONE (07:08)
[2021-05-07] MEDS ORDERED: BUPIVACAINE 0.5 % 5 MG/1 ML MPF 30ML VIAL ONE (07:08)
[2021-05-07] MEDS ORDERED: MIDAZOLAM HCL 1 MG/ML 2ML VIAL ONE (07:20)
[2021-05-07] MEDS ORDERED: ONDANSETRON INJ 2 MG/ML 2 ML VIAL ONE (07:21)
[2021-05-07] MEDS ORDERED: LIDOCAINE 2% 2 ML VIAL/AMP(20MG/ML) INFIL ONE (07:21)
[2021-05-07] MEDS ORDERED: fentaNYL citrate 100 MCG/2 ML VIAL ONE (07:21)
[2021-05-07] MEDS ORDERED: LARYING-O-JET KIT (LTA) ONE (07:21)
[2021-05-07] MEDS ORDERED: METOCLOPRAMIDE HCL INJ 5 MG/ML 2 ML VIAL ONE (07:21)
[2021-05-07] MEDS ORDERED: PROPOFOL IV EMULSION 10 MG/ML 20 ML VIAL IV ONE (07:21)
[2021-05-07] MEDS ORDERED: DEXAMETHASONE SOD INJ 4 MG/ML VIAL ONE (07:21)
[2021-05-07] MEDS ORDERED: FAMOTIDINE/PF 20 MG/2 ML VIAL IV ONE (07:26)
[2021-05-07] MEDS ORDERED: ACETAMINOPHEN 1000 MG/100 ML IV IV ONE (07:26)
[2021-05-07] MEDS ORDERED: SCOPOLAMINE 1 MG TDSY TD ONE (07:26)
--- NOTE | 2021-05-07 08:11 | Anesthesiology Consultation ---
Date of Service May 07, 2021 Assessment & Plan Chart Review Chart Review: Acceptable Risk for Surgery Consults Requested none History Surgery Operation Date: 05/07/21 06:55 Proposed Procedures p Laparoscopic Cholecystectomy - Nato Jordan MD Height/Weight Height: 5 ft 2 in Weight: 92.4 kg Allergies Allergy/AdvReac Type Severity Reaction Status Date / Time No Known Allergies Allergy Unverified 08/14/17 07:47 Medications Home Medications Medication Instructions Recorded Confirmed Last Taken VIT W/ FERROUS FUMARA 1 tab PO DAILY #0 07/02/15 Unknown () Ferrous Sulfate 325 mg PO DAILY #60 tab 08/16/17 Unknown Ibuprofen 600 mg PO Q6 PRN #30 tab 08/16/17 Unknown Active Medications Generic Name Dose Route Start Last Admin Trade Name Freq PRN Reason Stop Dose Admin Sodium Chloride 500 mls @ 125 mls/hr 05/07/21 05:15 05/07/21 06:00 Nss IV 06/06/21 05:14 125 mls/hr .Q4H GRAY Administration NPO Date Last Intake of Fluids: 05/06/21 Time Last Intake of Fluids: 23:00 Date Last Intake of Solids: 05/06/21 Time Last Intake of Solids: 22:00 Past Medical History Medical History No acute medical problems Past Surgical History Surgical History No pertinent past surgical history Social History Smoking Status: Current every day smoker Physical Exam Vital Signs Last Vital Signs Temp 36.8 C 05/07/21 01:47 Pulse 89 05/07/21 07:00 Resp 18 05/07/21 07:00 BP 105/78 05/07/21 05:00 Pulse Ox 96 05/07/21 07:00 Testing Laboratory Results 05/07/21 02:13 05/07/21 02:13 Urine Color Yellow 05/07/21 03:10 Urine Appearance Clear (Clear) 05/07/21 03:10 Urine pH 5.0 (4.5-7.5) 05/07/21 03:10 Ur Specific [place] 1.023 (1.000-1.030) 05/07/21 03:10 Urine Protein Negative (Negative) 05/07/21 03:10 Urine Glucose (UA) Negative (Negative) 05/07/21 03:10 Urine Ketones Negative (Negative) 05/07/21 03:10 Urine Nitrite Negative (Negative) 05/07/21 03:10 Ur Leukocyte Esterase Negative (Negative) 05/07/21 03:10
[2021-05-07] MEDS ORDERED: ONDANSETRON INJ 2 MG/ML 2 ML VIAL IV PRN ×2 (08:12→10:20)
[2021-05-07] MEDS ORDERED: fentaNYL citrate 100 MCG/2 ML VIAL IV PRN (08:12)
[2021-05-07] MEDS ORDERED: ATROPINE SULFATE 0.1 MG/ML 10ML SYR IV PRN (08:12)
[2021-05-07] MEDS ORDERED: PROMETHAZINE HCL 12.5 MG in SODIUM CHLORIDE 0.9% 50 ML IV PRN (08:12)
[2021-05-07] MEDS ORDERED: ePHEDrine sulfate 50 MG/ML AMP IV PRN (08:12)
[2021-05-07] MEDS ORDERED: HYDROmorphone INJ 2 MG/ML SYR/VIAL IV PRN (08:12)
[2021-05-07] MEDS ORDERED: ROCURONIUM BROMIDE 10 MG/ML 5 ML VIAL IV ONE (08:24)
[2021-05-07] MEDS ORDERED: GLYCOPYRROLATE 0.2 MG/ML VIAL ONE (08:24)
[2021-05-07] MEDS ORDERED: KETOROLAC 30 MG/ML VIAL ONE (08:25)
[2021-05-07] MEDS ORDERED: NEOSTIGMINE METHYLSULFATE 1 MG/ML 10ML VIAL ONE (08:25)
--- NOTE | 2021-05-07 08:44 | Post Operative Brief Note ---
Immediate Post Op Note v1 Date of Surgery May 07, 2021 Pre & Post Diagnosis Operation Date: 05/07/21 06:55 Pre-Op Diagnosis: Acute Cholecystitis Post-Op Diagnosis: Acute Cholecystitis I identified the patient and participated in the time-out.: Yes Procedure Operation Date: 05/07/21 06:55 Actual Procedures p Laparoscopic Cholecystectomy, Epigastric Hernia Repair(Not Applicable) - Nato Jordan MD Surgeon Nato Jordan MD Decontaminator none Estimated Blood Loss 10 Findings Consistent with Post-Op Diagnosis small epigastric hernia identified and repaired
--- NOTE | 2021-05-07 09:35 | Anesthesiology Progress Note ---
Date of Service May 07, 2021 Anesthesia Post Procedure Vital Signs Vital Signs: Temp Pulse Pulse Pulse Resp BP BP 05/07/21 09:25 70 17 102/83 05/07/21 09:15 59 L 24 123/80 05/07/21 09:05 75 20 129/71 05/07/21 08:55 72 20 126/75 05/07/21 08:47 36.2 C L 82 16 120/65 05/07/21 07:00 89 18 05/07/21 05:19 05/07/21 05:00 78 16 05/07/21 03:45 78 16 05/07/21 02:01 05/07/21 01:47 36.8 C 90 18 143/82 H 05/07/21 01:45 73 16 BP Pulse Ox 05/07/21 09:25 96 05/07/21 09:15 100 05/07/21 09:05 98 05/07/21 08:55 99 05/07/21 08:47 98 05/07/21 07:00 96 05/07/21 05:19 98 05/07/21 05:00 105/78 98 05/07/21 03:45 105/78 99 05/07/21 02:01 98 05/07/21 01:47 99 05/07/21 01:45 98 Transfer of Care Handoff Completed per policy Notes Mental Status: alert / awake / arousable and participated in evaluation Patient Amnestic to Procedure: Yes Nausea / Vomiting: adequately controlled Pain: adequately controlled Airway Patency, RR, SpO2: stable & adequate BP & HR: stable & adequate Hydration State: stable & adequate Anesthetic Complications: no major complications apparent
--- NOTE | 2021-05-07 10:07 | Operative Report (OR) ---
PREOPERATIVE DIAGNOSIS: Acute cholecystitis. POSTOPERATIVE DIAGNOSES: 1. Acute cholecystitis. 2. Epigastric hernia. PROCEDURES PERFORMED: 1. Laparoscopic cholecystectomy. 2. Primary repair of epigastric hernia. SURGEON: Nato Jordan MD FLOAT REMOVER: None. ANESTHESIA: General endotracheal with 0.5% Marcaine with epinephrine local. ESTIMATED BLOOD LOSS: 10 mL. DRAINS: None. COMPLICATIONS: None. SPECIMENS: Gallbladder sent to pathologic evaluation. INDICATIONS: This is a 26-year-old female brought through into the ER this morning with acute abdomi nal pain and underwent a workup, which showed an acute cholecystitis. She had an inflamed gallbladde r with a stone at the neck of her gallbladder. We talked to her in detail and recommended laparoscop ic cholecystectomy. We went over the risks of an open procedure, common bile duct injury, retained c ommon bile duct stone, and postop bile leak. DESCRIPTION OF PROCEDURE: The patient was taken to the OR and underwent excellent general endotrache al anesthesia. Her abdomen was prepped and draped in normal sterile fashion. A transverse supraumbi lical incision was made. Dissection was taken down to identify a hernia sac. There was an epigastri c hernia. The sac was dissected down to the fascia and was transected. A 2-0 Vicryls were placed in each side of the epigastric hernia. Kathy trocar was then inserted into the peritoneal cavity. Go od pneumoperitoneum was achieved to 15 mmHg pressure. A diagnostic lap was performed. The patient h ad an inflamed gallbladder identified. An 11 subxiphoid and two 5 lateral ports were placed in oscar l fashion. The patient was placed in head up and rolled to the left. Gallbladder was grasped at th e fundus and retracted superiorly. The neck was then retracted laterally. This exposed the cystic d uct and cystic artery. These were skeletonized. A medial and lateral window was created between the gallbladder and gallbladder fossa showing the structures going straight into the gallbladder. Once this critical view was seen, three clips were placed proximally in the cystic duct and one proximally and the cystic duct was transected. Two clips were placed proximally in the cystic artery, one dist ally on the cystic artery and this was transected also. Electrocautery hook was then used to remove the gallbladder off the gallbladder fossa. The gallbladder was brought out with an Endobag through t he supraumbilical incision. Pneumoperitoneum was reestablished and the gallbladder was sent for path ologic evaluation. Cautery was used to coagulate some of the gallbladder fossa raw areas. This was then irrigated out and suctioned clear. The clips were well placed on the duct and artery remnants. The ports were then removed. Pneumoperitoneum was decompressed. Attention was then turned to repai ring the small epigastric hernia. This was closed with a series of interrupted 0 Ethibond figure-of- eight sutures. Once the epigastric hernia was repaired, the incisions were localized with Marcaine. Interrupted Vicryl was used to close the skin. Steri-Strips and benzoin were used to reinforce the incision. Sterile dressings were applied. The patient tolerated the procedure without any complicat ions and was sent to the postoperative recovery for a period of observation and then sent to the [facility] for her care. Job ID: [id number]
--- NOTE | 2021-05-07 10:10 | Ultrasound Report ---
ULTRASOUND RIGHT UPPER QUADRANT ABDOMEN CLINICAL HISTORY: Right upper quadrant abdominal pain. COMPARISON STUDY: No priors. TECHNIQUE: Real-time, grayscale, and color flow sonography of the right upper quadrant of the abdomen was performed. Images are reviewed in the transverse and longitudinal planes. FINDINGS: Liver: The liver is normal in size and echotexture. There is no intrahepatic biliary ductal dilatatio n. The main portal vein is patent. Gallbladder: A 9 mm shadowing gallstone is seen in the region of the gallbladder neck. There is no ga llbladder wall thickening or pericholecystic fluid. A sonographic Jameson's sign is reportedly absent. The common bile duct measures up to 0.4 cm in diameter. Pancreas: Visualized portions of the pancreatic head and body are normal in appearance. The splenic v ein is patent. Right kidney: Survey images of the right kidney demonstrate normal size and echotexture. There is no hydronephrosis. Ascites: None. IMPRESSION: Cholelithiasis without sonographic evidence of acute cholecystitis. ACT 112: Negative or not required by law. Electronically signed by: Jh Torres M.D. 05/07/2021 10:09 AM
[2021-05-07] MEDS: cefOXitin 2,000 MG in DEXTROSE 5% 50 ML IV SCH ×3 (12:31→23:57)
[2021-05-07] MEDS: oxyCODONE/ACETAMINOPHEN 5mg/325mg TAB PO PRN (23:56)
[2021-05-08] MEDS: SODIUM CHLORIDE 0.9% 500 ML IV SCH (02:56)
[2021-05-08] MEDS: cefOXitin 2,000 MG in DEXTROSE 5% 50 ML IV SCH ×2 (05:32→12:44)
[2021-05-08] MEDS ORDERED: COUGH DROP (SUGAR FREE) LOZ 24 LOZ/1 BOX BUCCAL ONE (09:17)
--- NOTE | 2021-05-08 13:38 | Discharge Summary ---
Date of Service May 08, 2021 Admission HPI Per Admitting Provider This 26-year-old presents to the ER complaining of right upper quadrant pain which began today. She ate a meal last night and pain began. This was the first episode and the pain radiated to her right back and mainly upper quadrant. She has nausea associated but no vomiting. Patient denies chest pain, dyspnea, fevers, flulike illness, or urinary symptoms. Principal Diagnosis Acute calculous cholecystitis Discharge Exam Constitutional WD/WN, vitals as above no acute distress and not ill appearing Neck normal visual inspection and trachea midline Respiratory normal respiratory effort; no respiratory distress Gastrointestinal (Abdomen) Inspection/Auscultation: abdomen normal to inspection and + abdominal surgical incision (covered with dressings, clean and dry); abdomen not distended Percussion/Palpation: + abdomen tender (very mild at incision sites) and abdomen soft; no guarding and abdomen not rigid Skin no rashes, warm and dry Psychiatric A+Ox3, euthymic affect Discharge Data Allergies Allergy/AdvReac Type Severity Reaction Status Date / Time No Known Allergies Allergy Unverified 08/14/17 07:47 Consultations 05/07/21 05:35 ED Decision to Admit Stat Procedures Performed Operation Date: 05/07/21 06:55 Actual Procedures p Laparoscopic Cholecystectomy, (Not Applicable) - Nato Jordan MD s Laparoscopic Hernia Repair, Epigastric Hernia Repair(Not Applicable) - Nato Jordan MD Ordered Studies 05/07/21 02:01 gallbladder Urgent Hospital Course (1) Gallstones: (2) Acute cholecystitis: Patient taken to operating room for laparoscopic cholecystectomy by Dr. Jordan on 05/07/2021. Patient found to have acute cholecystitis. Patient tolerated procedure without difficulty and transferred to medical/surgical floor for postoperative care. Diet advanced to regular diet, activity as tolerated, IV Morphine with PO Percocet as needed for pain. POD # 1, afebrile, vitals stable, postop pain controlled, no nausea or vomiting. Some pain with taking deep breath. Urinating without difficulty. Tolerating diet. Patient was discharged home on POD # 1 in stable condition. Total Time Total Time Spent Total Time Spent (In Minutes): 20 Total Time Includes: Examination of the Patient, Discharge Planning and Medication Reconciliation Discharge Plan Discharge Items Patient Disposition: Home - Self-Care Reason For Visit: ACUTE CHOLECYSTITIS Discharge Diagnosis: Acute calculous cholecystitis Epigastric hernia Condition on Discharge: Good Activity: Per Instructions section Non-emergency contact: Surgeon Call non-emergency contact if: you have any medication questions, your pain is not controlled, your pain is worsening, you have a fever, your temperature is above 101, your wound has increased redness, your wound has increased drainage and your wound pain has increased Follow-up/Referrals: Nato Jordan MD [Physician] - PCP,NO [Primary Care Provider] - Diet: Regular Addtl Attending Provider Instructions: Post-Surgical ~Discharge Instructions Activity Recommendations: - lifting limitation: (20 pounds for 4-6 weeks), - exercise/sex/sports limit: (nonstrenuous for 2 weeks), - driving or machine use limit: (none for 1 week or until pain free and no longer taking narcotic pain meds - Shower/bathe limit: (may shower beginning tomorrow) Diet: - Resume previous diet SPECIAL CARE INSTRUCTIONS: - May shower in 24 hours. Let water run over area and pat dry. - Leave steri strips on for one week. They may fall off on their own that is okay. - Call the surgeon's office with any questions or concerns - - (ex. temperature higher than 101 degrees F, excessive bleeding or pain). MEDICATIONS: - Resume previous medications unless instructed otherwise by your surgeon. - May alternate extra strength Tylenol and Ibuprofen as needed for mild to moderate pain -650 mg Tylenol every 6 hours as needed - Ibuprofen 600 mg every 6 hours as needed (take with food and limit duration of continuous use to no more than 3 days) - Percocet 1 every 4 hours, as needed for moderate to severe pain - Recommend daily stool softener (Colace) while taking narcotic pain medication to prevent constipation and straining. FOLLOW UP VISIT: - If not already scheduled, please call the office to schedule a two week follow-up appointment. Office number Pending Studies at Discharge: Yes (gallbladder pathology, will be reviewed at follow-up visit) Stand-Alone Forms: [employer], Opioid Pain Management, Work/School Release, Smoking Cessation Medications and DC Order Prescriptions: New oxycodone-acetaminophen [Percocet] 5-325 mg tablet 1 tab PO Q4H PRN (Reason: pain) Qty: 12 RF: 0 Continued VIT W/ FERROUS FUMARA () 1 TAB tablet 1 tab PO DAILY Qty: 0 RF: 0 Ferrous Sulfate 325 MG tablet 325 mg PO DAILY Qty: 60 RF: 0 Ibuprofen 600 MG tablet 600 mg PO Q6 PRN (Reason: PAIN, BOYLE, CRAMPING OR FEVER) Qty: 30 RF: 0 Discharge Orders: Discharge Order (Routine); Ordered 05/08/21 Ordered By: Susan Guevara/Other Patient Handouts: Cholecystectomy Laparoscopic Dc Admission Data Admit Date/Time: 05/07/21 08:47 Attending Provider: Nato Jordan Admit Provider: Nato Jordan Primary Care Provider: PCP,NO Other Providers: Nato Jordan Other Interventions: Discharge Summary Assessment (RN) Last Done: 05/08/21 13:25
[2021-05-08] MEDS: oxyCODONE/ACETAMINOPHEN 5mg/325mg TAB PO PRN (14:05)
== END 2021-05-08 14:21 | disposition home or self-care (01) ==
LOC: 3N 01:45 → ED 01:45 → 3N 07:19